=== PATIENT | female | born 1950 | race Caucasian/White ===

== ENCOUNTER 2019-08-03 00:31 | Outpatient (CLI) | payer MEDICARE, SELFPAY ==
[2019-08-03 17:48] LABS: SARS-CoV-2 RNA PCR Negative
== END 2019-08-03 00:32 | disposition home or self-care (01) ==
LOC: ANHCOVIDDT 00:31
PROVIDERS: PCP Family Medicine; Visit Provider Orthopaedic Surgery
DX: Z01.812 Encounter for preprocedural laboratory examination (principal); Z20.828 Contact with and (suspected) exposure to other viral communicable diseases
CPT/HCPCS: 87635; C9803; U0003

== ENCOUNTER 2019-08-06 01:39 | Day surgery (SDC) | payer MEDICARE, SELFPAY ==
[2019-07-27 15:17] VITALS: BMI 21.2
[2019-08-06] VITALS (8 sets, daily range): BP systolic 85–139; BP diastolic 48–68; PULSE 66–87; RESP 1–16; TEMP 35.8–37.3; O2SAT 100
[2019-08-06] MEDS: LACTATED RINGERS 1,000 ML 30 ML IV CONT ×2 (09:10→11:43)
--- NOTE | 2019-08-06 09:25 | P.PNAN_ITS ---
Anes - Initial Pre Proc Eval Procedure: Operation Date: 08/06/19 10:30 Proposed Procedures p Right Shoulder Examination Under Anesthesia with Injection - Richy Shelley MD Date/Time: 08/06/19 09:25 Surgeon: Richy Shelley MD Pre Op Diagnosis: right frozen shoulder Patient Data Age: 68 Gender: F Height: 1.6 m Weight: 54.54 kg Allergies Allergy/AdvReac Type Severity Reaction Status Date / Time No Known Allergies Allergy Verified 07/27/19 15:07 Home Medications Medication Instructions Recorded Confirmed Type No Home Medications 07/27/19 07/31/19 History Patient hx anesthesia problems: none Family hx anesthesia problems: none PMFSH Past Medical History Medical History Osteoporosis Skin problem Surgical History Surgical History (Updated 08/06/19 @ 08:06 by Olayinka Morales DO) History of section 1972 & 1974 History of tonsillectomy Social History Social History Smoking status: Never smoker Alcohol intake: never Additional living arrangements comments: Spouse Gender identity (if verbalized by the patient): Female Anes - Eval Final PreProcedure Day of Procedure 08/06/19 09:25 Patient weight: normal Heart: regular rate and rhythm Lungs: clear to auscultation and normal air movement Airway: Mallampati scale class II Neurological: alert and oriented Last oral intake: >/= 8 hours ASA classification: II Emergent: no Anesthetic plan: proceed Anesthesia type and monitoring: general and standard monitoring Informed Consent: The patient's anesthetic plan and its attendant risks and benefits were discussed with the patient/family/POA. Questions were solicited a nd answers provided to the satisfaction of the patient/family/POA.
--- NOTE | 2019-08-06 10:11 | WPDHPUPDATE1 ---
History and Physical Update Update Date/Time: 08/06/19 10:11 History and Physical has been reviewed, including an updated exam of the patient. There are NO changes in the patient's condition. Risks, benefits, and alternatives have been discussed and questions answered. Patient agrees to proceed with procedure.
--- NOTE | 2019-08-06 10:22 | WPDANESPNB ---
Anes - Peripheral Nerve Block Date/Time: 08/06/19 10:22 I have discussed with the patient/family/POA the placement of a peripheral nerve block for post-operative pain management, including associated risks, benefits, complications, and side effects. Alternative methods of post-operative analgesia were detailed. Questions were solicited and answers provided to the satisfaction of the patient/family/POA. Time-Out: A pre-procedural Time-Out was completed immediately before starting the procedure and confirmed: Patient Identification, Site, Procedure, Patient Position and the Availability of Requisite Equipment. Clinical Indications: Acute post-operative pain management requested by the operative surgeon. Nerve Block Insertion Note Anes-nerve block: interscalene right Patient position: supine Skin prep: chlorhexidine Needle: 22 gauge, stimulating, insulated echogenic needle. Needle length: 50 mm Technique: ultrasound Injectate: bupivacaine 0.5% with epi 5 mcg/ml (30cc) Observations: tolerated well Complications: none Procedure start time:: 1018 Procedure end time:: 1
[2019-08-06] MEDS: ceFAZolin 2 GM/D5W 50 ML 2 GM/50 ML BAG IVPB (10:37)
[2019-08-06] MEDS: TRIAMCINOLONE ACET INJ SUSP 50 MG/5 ML VIAL 7 MG IM (10:50)
--- NOTE | 2019-08-06 11:03 | PM.PROC ---
Procedure Note - Detailed Date of procedure: 08/06/19 Pre-op diagnosis: right frozen shoulder Post-op diagnosis: same Procedure performed: evaluation and anesthesia with manipulation of right shoulder. Intra-articular injection right shoulder. Description of procedure: Patient was identified and proper side identified. In the preop holding area the anesthesia team performed a right upper extremity block. She was then taken to the operating room and left on the patient gurney. After administration of IV sedation, her shoulder range of motion was evaluated. She had passive elevation to perhaps 90? with the shoulder abducted external rotation was about 30? internal rotation about the same. A gentle manipulation was carried out taking the shoulder through range of motion after which her elevation was essentially 180?, external rotation almost 90?, internal rotation 70?. The shoulder was then injected intra-articularly with 5 cc of 0.5% Marcaine and 20 mg of Kenalog without incident. She tolerated the procedure well and was taken back to recovery area in stable condition. There were no known intraoperative complications. Anesthesia: MAC Surgeon: Richy Shelley MD Estimated blood loss (mL): 0 Tourniquet time (min): 0 Drains: No Packing: No Pathology: none sent Complications: No immediate complications Condition: stable Disposition: PACU
[2019-08-06] MEDS: ONDANSETRON INJ 4 MG/2 ML VIAL IV PUSH (12:29)
== END 2019-08-06 13:14 | disposition home or self-care (01) ==
PROVIDERS: PCP Family Medicine; Visit Provider Orthopaedic Surgery
PROC: (CPT 23700; principal; 2019-08-06 10:30)
DX: M75.01 Adhesive capsulitis of right shoulder (principal); M81.0 Age-related osteoporosis without current pathological fracture
CPT/HCPCS: 23700; A4565; J0690; J1100; J2250; J2405; J2704; J3010; J3301; J7120

== ENCOUNTER → 2021-02-10 10:05 | Outpatient (CLI) | payer MEDICARE, SELFPAY ==
--- NOTE | ~2021-02-10 | DEXA_ITS ---
Bone Density Report Name: FLOYD AGUSTIN Age: 70 Sex: Female Ethnicity: White Date of : 1950 Indication: osteopenia; postmenopausal Referring Provider: ROGE, HERSON Study: Bone densitometry was performed. Exam Date: February 10, 2021 Accession number: [id number] Bone Density: Region BMD T-score Z-score Classification AP Spine (L1-L4) 0.826 -2.0 0.1 Osteopenia Femoral Neck (Left) 0.585 -2.4 -0.6 Osteopenia Total Hip (Left) 0.718 -1.8 -0.4 Osteopenia Femoral Neck (Right) 0.603 -2.2 -0.5 Osteopenia Total Hip (Right) 0.713 -1.9 -0.4 Osteopenia Total Hip Mean 0.716 -1.9 -0.4 Osteopenia World Health Organization criteria for BMD impression classify patients as: Normal (T-score at or above -1.0), Osteopenia (T-score between -1.0 and -2.5), or Osteoporosis (T-score at or below -2.5). 10-year Fracture Risk(1): Major Osteoporotic Fracture 12% Hip Fracture 2.9% Reported Risk Factors: [place] (), Neck BMD=0.585, BMI=21.5 (1) FRAX(R) Version 3.08. Fracture probability calculated for an untreated patient. Fracture probability may be lower if the patient has received treatment. Previous Exams: Region Exam Age BMD T-score BMD Change BMD Change Date g/cm2 vs Baseline vs Previous AP Spine(L1-L4) 02/10/2021 70 0.826 -2.0 -0.022 -0.013 07/07/2018 67 0.839 -1.9 -0.009 -0.016 07/02/2016 65 0.855 -1.7 0.007 0.016 06/27/2014 63 0.839 -1.9 -0.009 0.010 06/23/2012 61 0.829 -2.0 -0.020 -0.017 06/15/2010 59 0.845 -1.8 -0.003 -0.028* 06/12/2008 57 0.873 -1.6 0.025* 0.025* 02/02/2006 55 0.848 -1.8 Total Hip(Left) 02/10/2021 70 0.718 -1.8 -0.065* 0.003 07/07/2018 67 0.716 -1.9 -0.068* 0.002 07/02/2016 65 0.713 -1.9 -0.070* -0.004 06/27/2014 63 0.717 -1.8 -0.066* -0.003 06/23/2012 61 0.720 -1.8 -0.064* -0.064* 06/15/2010 59 0.784 -1.3 0.000 -0.007 06/12/2008 57 0.791 -1.2 0.008 0.008 02/02/2006 55 0.783 -1.3 Total Hip(Right) 02/10/2021 70 0.713 -1.9 -0.060* 0.011 07/07/2018 67 0.701 -2.0 -0.072* -0.018 07/02/2016 65 0.719 -1.8 -0.053* 0.010 06/27/2014 63 0.709 -1.9 -0.063* -0.023 06/23/2012 61 0.733 -1.7 -0.040* -0.038* 06/15/2010 59 0.771 -1.4 -0.002 -0.013 06/12/2008 57 0.784 -1.3
--- NOTE | ~2021-02-10 | MM_ITS ---
EXAMINATION: MM screening [facility] BI w concha HISTORY: Screening mammogram TECHNIQUE: Craniocaudal and mediolateral oblique 3-D tomosynthesis images were obtained and synthetic 2-D images were generated. CAD analysis was submitted and interpreted. COMPARISON: 07/12/2018, 07/02/2016, 06/30/2015 BREAST PARENCHYMAL COMPOSITION: The breasts are heterogeneously dense, which may obscure small masses . FINDINGS: There is no evidence of suspicious mass, calcification, or architectural distortion to sugg est malignancy in either breast. There has been no suspicious interval change. IMPRESSION: 1. No mammographic evidence of malignancy. 2. Recommend routine screening mammography in one year. BI-RADS Category 1: Negative Reviewed, dictated and finalized at location [facility]. [facility]
== END ==
PROVIDERS: PCP Family Medicine; Visit Provider Nurse Practitioner
DX: Z12.31 Encounter for screening mammogram for malignant neoplasm of breast (principal); M85.88 Other specified disorders of bone density and structure, other site; M85.852 Other specified disorders of bone density and structure, left thigh; M85.851 Other specified disorders of bone density and structure, right thigh
CPT/HCPCS: 77063; 77067; 77080

== ENCOUNTER 2023-08-09 13:46 | Outpatient (CLI) | payer MEDICARE, SELFPAY ==
[2023-08-09 14:11] LABS: Basophils Absolute Auto 0.05 K/mm3 (0.00-0.10); Basophils Percent Auto 0.7 % (0.0-1.0); Eosinophils Absolute Auto 0.13 K/mm3 (0.02-0.50); Eosinophils Percent Auto 1.8 % (1.0-6.0); Hematocrit 38.4 % (35.0-42.0); Hemoglobin 12.8 g/dL (11.7-13.8); Immature Granulocyte Absolute 0.04 K/mm3 (0.00-0.00); Immature Granulocyte Percent A 0.6 % (0.0-0.0); Lymphocytes Absolute Auto 1.71 K/mm3 (1.10-4.50); Lymphocytes Percent Auto 23.9 % (18.0-42.0); Mean Corpuscular HGB Conc 33.3 g/dL (32-36); Mean Corpuscular Hemoglobin 31.2 pg (27.0-31.0); Mean Corpuscular Volume 93.7 fL (78.0-102.0); Mean Platelet Volume 9.5 fl (9.2-11.8); Monocytes Percent Auto 5.6 % (2.0-11.0); Neutrophils Absolute Auto 4.83 K/mm3 (1.70-7.20); Neutrophils Percent Auto 67.4 % (50.0-70.0); Platelet Count Result 297 K/mm3 (150-420); Red Cell Distribution Width 12.2 % (11.6-14.4); White Blood Count 7.2 K/mm3 (4.8-10.8)
[2023-08-09 14:58] LABS: Alanine Aminotransferase 37 U/L (14-59); Albumin Level 4.2 g/dL (3.4-5.0); Alkaline Phosphatase 94 U/L (46-116); Anion Gap 9 mmol/L (4-12); Aspartate Amino Transferase 23 U/L (15-37); Bilirubin,Total 0.5 mg/dL (0.00-1.00); Blood Urea Nitrogen 14 mg/dL (7-18); Calcium 9.5 mg/dL (8.5-10.1); Carbon Dioxide 29 mmol/L (21-32); Chloride 101 mmol/L (98-108); Cholesterol 156 mg/dL (0-200); Estimated Glomerular Filt Rate > 60; Glucose 86 mg/dL (70-99); HDL Direct 70 mg/dL (40-60); LDL Cholesterol Calculated 73 mg/dL (<130); Osmolality Calculated 287 mOsm/kg (285-295); Sodium 139 mmol/L (136-145); Total Protein 6.9 g/dL (6.4-8.2); Triglycerides 64 mg/dL (0-150)
[2023-08-09 15:39] LABS: Thyroid Stimulating Hormone Reflex 2.09 u/IU/mL (0.36-3.74)
[2023-08-13 15:02] LABS: Vitamin D 1,25 (OH)2 Total 36 pg/mL (18-72); Vitamin D2 1,25 (OH)2 <8 pg/mL; Vitamin D3 1,25 (OH)2 36 pg/mL
== END 2023-08-09 13:47 | disposition home or self-care (01) ==
LOC: CHSLAB 13:48
PROVIDERS: PCP Family Medicine; Visit Provider Family Medicine
DX: E55.9 Vitamin D deficiency, unspecified (principal); Z68.1 Body mass index [BMI] 19.9 or less, adult; M81.0 Age-related osteoporosis without current pathological fracture; E03.9 Hypothyroidism, unspecified
CPT/HCPCS: 36415; 80053; 80061; 82652; 84443; 85025